=== PATIENT | female | born 2000 | race African-American/Black ===

== ENCOUNTER 2022-06-30 16:13 | Emergency (ER) | payer SELFPAY ==
[~2022-06-30] VITALS: Ht 167.6 cm; Wt 59.1 kg
[2022-06-30 16:38] VITALS: BP 135/75
[2022-06-30] MEDS ORDERED: PHENAZOPYRIDINE HCL 100 MG TAB PO ONE (16:45)
[2022-06-30 16:57] LABS: Urine Bacteria NONE SEEN /hpf (None Seen); Urine Blood Negative /uL (Negative); Urine Mucus FEW (None Seen); Urine Specific Gravity 1.028 (1.001-1.035); Urine WBC 14 /hpf (0 - 5)
[2022-06-30] MEDS ORDERED: PHEN200T16 PO (17:17)
[2022-06-30] MEDS ORDERED: BACDST PO (17:17)
== END 2022-06-30 17:21 | disposition home or self-care (01) ==
LOC: ER 16:16
DX: N39.0 Urinary tract infection, site not specified (principal); F17.210 Nicotine dependence, cigarettes, uncomplicated
CPT/HCPCS: 81001; 81025

== ENCOUNTER 2022-08-09 07:45 | Emergency (ER) | payer SELFPAY ==
[~2022-08-09] VITALS: Ht 167.6 cm; Wt 58.0 kg
[~2022-08-09 07:45] MED LIST: BACDST PO; PHEN200T16 PO
[2022-08-09 08:49] VITALS: BP 110/66
[2022-08-09 09:01] LABS: Urine Bacteria FEW /hpf (None Seen); Urine Blood TRACE /uL (Negative); Urine Budding Yeast OCCASIONAL /hpf (None Seen); Urine Mucus FEW (None Seen); Urine Specific Gravity 1.021 (1.001-1.035); Urine WBC 319 /hpf (0 - 5); Urine WBC Clumps PRESENT /hpf (None Seen)
[2022-08-09] MEDS ORDERED: PHEN200T16 PO (09:01)
[2022-08-09] MEDS ORDERED: NITR-87 PO (09:01)
[2022-08-09] MEDS ORDERED: PHENAZOPYRIDINE HCL 100 MG TAB PO ONE (09:15)
[2022-08-09] MEDS ORDERED: cefTRIAXone SOD 1,000 MG VL IM ONE (09:15)
== END 2022-08-09 09:40 | disposition home or self-care (01) ==
LOC: ER 07:45
DX: N39.0 Urinary tract infection, site not specified (principal); Z32.01 Encounter for pregnancy test, result positive
CPT/HCPCS: 81001; 81025; 96372; 99283; J0696

== ENCOUNTER 2022-12-30 18:50 | Emergency (ER) | payer MEDICAID ==
[~2022-12-30] VITALS: Ht 167.6 cm; Wt 67.4 kg
[~2022-12-30 18:50] MED LIST changes: +NITR-87 PO
[2022-12-30] MEDS ORDERED: AMOX-277 PO (19:56)
[2022-12-30] MEDS ORDERED: ACET-1158 PO (19:56)
[2022-12-30 20:01] VITALS: BP 106/58
== END 2022-12-30 20:04 | disposition home or self-care (01) ==
LOC: ER 18:50
DX: L03.031 Cellulitis of right toe (principal); Z79.2 Long term (current) use of antibiotics; Z79.899 Other long term (current) drug therapy